=== PATIENT | male | born 1930 | race African-American/Black ===

== ENCOUNTER 2017-02-18 14:48 | Emergency (ER) | payer MEDICARE, OTHER ==
[~2017-02-18] VITALS: Ht 182.9 cm; Wt 90.0 kg
[~2017-02-18 14:48] MED LIST: AMLO1CAP46 PO; ASPI-1093 PO; CIPR-278 PO; MIRALAX PO; MULT-1259 PO; SIMV40TA5 PO; UBID100C26 PO
[2017-02-18 16:57] LABS: BASOPHILS % (AUTO) 0.5 % (0.0-2.0); EOSINOPHILS % (AUTO) 2.3 % (1.0-6.0); HEMATOCRIT 35.1 % (41-53); HEMOGLOBIN 11.8 g/dL (13.5-17.5); LYMPHOCYTES # (AUTO) 2.8 K/uL (1.0-4.8); LYMPHOCYTES % (AUTO) 36.1 % (22.0-44.0); MEAN CORPUSCULAR HEMOGLOBIN 33.6 pg (26.0-34.0); MEAN CORPUSCULAR HGB CONC 33.6 G/dL (31.0-37.0); MEAN CORPUSCULAR VOLUME 100 fL (80-100); MONOCYTES # (AUTO) 0.7 K/uL (0.1-1.0); MONOCYTES % (AUTO) 9.4 % (2.0-9.0); NEUTROPHILS % (AUTO) 51.7 % (40.0-70.0); PLATELET COUNT (AUTO) 247 K/uL (150-450); RED CELL DISTRIBUTION WIDTH 17.2 % (11.5-14.5); WHITE BLOOD COUNT (AUTO) 7.7 K/uL (4.5-11.0)
[2017-02-18 16:57] LABS: ADD UA MICROSCOPIC NO; APPEARANCE,URINE CLEAR (CLEAR); GLUCOSE, URINE (UA) NEGATIVE (NEGATIVE); KETONES,URINE NEGATIVE (NEGATIVE); LEUKOCYTE ESTERASE ,URINE NEGATIVE (NEGATIVE); OCCULT BLOOD,URINE NEGATIVE (NEGATIVE); PROTEIN,URINE NEGATIVE (NEGATIVE)
[2017-02-18 17:05] LABS: ANION GAP 9 mmol/L (8-16); CALCIUM, TOTAL 9.1 mg/dL (8.8-10.5); CARBON DIOXIDE 26 mmol/L (22-29); CHLORIDE 105 mmol/L (98-107); CREATININE 1.36 mg/dL (0.60-1.30); GLOMERULAR FILTR. RATE CALC 60 mL/min (>60); POTASSIUM 3.9 mmol/L (3.5-5.1); SODIUM SERUM 140 mmol/L (136-145); UREA NITROGEN, BLOOD 12 mg/dL (7-18)
[2017-02-18 17:11] LABS: INR 1.1 (0.9-1.1); PROTHROMBIN TIME 11.2 SEC (9.4-11.6)
[2017-02-18 17:26] LABS: B-TYPE NATRIURETIC PEPTIDE 127 pg/mL (0-100)
[2017-02-18 17:31] LABS: ALANINE AMINOTRANSFERASE 27 U/L (12-78); ALBUMIN 4.3 g/dL (3.4-5.0); ASPARTATE AMINOTRANSFERASE 28 U/L (15-37); CREATINE KINASE MB 1.8 ng/mL (0-5); CREATINE KINASE, TOTAL 139 U/L (39-308); TOTAL PROTEIN, SERUM 7.6 g/dL (6.4-8.2)
[2017-02-18 17:49] LABS: RBC MORPHOLOGY COMMENT ABNORMAL RBC MORPH
[2017-02-18] MEDS ORDERED: IOVERSOL 350 MG/ML 150 ML VIAL ONE (18:19)
[2017-02-18] MEDS ORDERED: SODIUM CHLORIDE 0.9% 100 ML ONE (18:20)
[2017-02-18 19:21] VITALS: BP 145/89
== END 2017-02-18 21:48 | disposition home or self-care (01) ==
LOC: EMS 14:49
DX: R60.0 Localized edema (principal); N39.0 Urinary tract infection, site not specified; N40.0 Benign prostatic hyperplasia without lower urinary tract symptoms; I10 Essential (primary) hypertension
CPT/HCPCS: 36415; 51702; 71010; 75635; 80053; 81003; 82550; 82553; 83880; 84484; 85025; 85610; 85730; 93005; 93971; 99285; J7050; Q9967

== ENCOUNTER 2017-02-22 13:27 | Emergency (ER) | payer MEDICARE, OTHER ==
[~2017-02-22] VITALS: Ht 182.9 cm; Wt 84.0 kg
[~2017-02-22 13:27] MED LIST changes: -ASPI-1093 PO; -CIPR-278 PO
[2017-02-22 15:45] VITALS: BP 126/68
== END 2017-02-22 16:15 | disposition home or self-care (01) ==
LOC: EMS 13:29
DX: M79.89 Other specified soft tissue disorders (principal); I10 Essential (primary) hypertension
CPT/HCPCS: 93971; 99284

== ENCOUNTER 2018-05-01 02:06 | Emergency (ER) | payer MEDICARE, OTHER ==
[~2018-05-01] VITALS: Ht 182.9 cm; Wt 77.3 kg
[~2018-05-01 02:06] MED LIST changes: -UBID100C26 PO; +UBID100C45 PO
[2018-05-01] MEDS ORDERED: ATOR20TA86 PO (02:28)
[2018-05-01] MEDS ORDERED: IBUP-2071 PO (02:28)
[2018-05-01] MEDS ORDERED: CETI-290 PO (02:28)
[2018-05-01] MEDS ORDERED: TAMS0.4C32 PO (02:28)
[2018-05-01] MEDS ORDERED: PANT40TA25 PO (02:28)
[2018-05-01] MEDS ORDERED: NYSTATIN 500,000 UNITS/5 ML SUSPENSION UDCUP PO ONE (03:30)
[2018-05-01 04:06] VITALS: BP 130/68
== END 2018-05-01 04:20 | disposition home or self-care (01) ==
LOC: EMS 02:07
DX: B37.9 Candidiasis, unspecified (principal); K21.9 Gastro-esophageal reflux disease without esophagitis; E78.00 Pure hypercholesterolemia, unspecified; I10 Essential (primary) hypertension